=== PATIENT | female | born 1940 | race African-American/Black ===

== ENCOUNTER 2016-12-21 16:03 | Emergency (ER) | payer MEDICAID, MEDICARE ==
[~2016-12-21] VITALS: Ht 152.4 cm; Wt 73.0 kg
[~2016-12-21 16:03] MED LIST: ALEVE220 M2 PO; ASPIR 8181 MG ORAL; ATORVASTATIN CA20 MG ORAL; BISACODYL5 MG ORAL; CALCIUM 500 +1 EAC7 PO; CARVEDILOL6.25 MG ORAL; DOCUSATE SODIU250 MG ORAL; HYDROCODON-ACE1 EA13 ORAL; NITROGLYCERIN0.4 MG SL; RANITIDINE HCL150 MG ORAL; VICODIN 5-5001 EACH PO; WARFARIN SODIUM2 MG ORAL
[2016-12-21] MEDS ORDERED: Sodium Chloride 500ML 500 ML IV ONE (16:18)
[2016-12-21 16:21] VITALS: BP 104/47
[2016-12-21 16:30] VITALS: BP 110/52
[2016-12-21] MEDS ORDERED: Morphine Sulfate 4mg/ml Inj IVP ONE (16:45)
[2016-12-21 17:44] LABS: BASOPHILS % (AUTO) 1.9 % (0.0-2.0); EOSINOPHILS % (AUTO) 5.4 % (0.0-3.0); LYMPHOCYTES % (AUTO) 30.5 % (20.0-45.0); MEAN CORPUSCULAR HEMOGLOBIN 30.1 PG (27.0-31.0); MEAN CORPUSCULAR HGB CONC 30.1 G/DL (32.0-36.0); MEAN CORPUSCULAR VOLUME 100 FL (80-99); MEAN PLATELET VOLUME 7.2 FL (6.5-10.1); MONOCYTES % (AUTO) 13.6 % (1.0-10.0); NEUTROPHILS % (AUTO) 48.7 % (45.0-75.0); PLATELET COUNT 157 K/UL (150-450); RED BLOOD COUNT 3.41 M/UL (4.20-5.40); RED CELL DISTRIBUTION WIDTH 12.8 % (11.6-14.8)
[2016-12-21 18:09] LABS: ALANINE AMINOTRANSFERASE 22 U/L (12-78); ALBUMIN/GLOBULIN RATIO 0.8 (1.0-2.7); ANION GAP 4 (5-15); ASPARTATE AMINO TRANSFERASE 29 U/L (15-37); CALCIUM 9.2 MG/DL (8.5-10.1); CARBON DIOXIDE 32 MMOL/L (21-32); CHLORIDE 102 MMOL/L (98-107); CKMB 1.6 NG/ML (0.0-3.6); CREATININE 0.8 MG/DL (0.55-1.30); POTASSIUM 4.5 MMOL/L (3.5-5.1); SODIUM 138 MMOL/L (136-145); TOTAL PROTEIN 7.6 G/DL (6.4-8.2)
[2016-12-21 18:25] VITALS: BP 123/65
[2016-12-21 20:15] VITALS: BP 146/71
[2016-12-21 20:21] VITALS: BP 146/71
--- NOTE | 2016-12-21 22:07 | Emergency Room Report ---
History of Present Illness General Chief Complaint: Chest Pain Source: Patient Present Illness HPI 76-year-old female presents ED for evaluation. Patient states she is having chest pain started pressure 1 hour prior to arrival appear started at rest. Pain was initially 7/10, dull, nonradiating. Patient was given nitroglycerin by EMS and aspirin. states chest pain is improved. Denies fevers or chills. Denies cough. No aggravating relieving factors. Denies any other associated symptoms Allergies: Coded Allergies: NO KNOWN ALLERGIES (Unverified Allergy, Unknown, 03/01/15) Patient History Past Medical History: HTN, GERD, CVA/TIA Past Surgical History: pacemaker Pertinent Family History: none Social History: Denies: smoking, alcohol use, drug use Now: No Immunizations: UTD Reviewed Nursing Documentation: PMH: Agreed, PSxH: Agreed Nursing Documentation-PMH Hx Cardiac Problems: Yes - pacemaker, arthritis Hx Hypertension: Yes Hx Pacemaker: Yes Hx Cancer: No Hx Gastrointestinal Problems: Yes - GASTRITIS Hx Cerebrovascular Accident: Yes Review of Systems All Other Systems: negative except mentioned in HPI Physical Exam Vital Signs Date Time Temp Pulse Resp B/P (MAP) Pulse Ox O2 Delivery O2 Flow Rate FiO2 12/21/16 16:11 97.5 88 16 89/52 99 12/21/16 16:21 Room Air Sp02 EP Interpretation: reviewed, normal General Appearance: no apparent distress, alert, GCS 15, non-toxic Head: normocephalic, atraumatic Eyes: bilateral eye normal inspection, bilateral eye PERRL ENT: hearing grossly normal, normal pharynx, no angioedema, normal voice Neck: full range of motion, supple/symm/no masses Respiratory: chest non-tender, lungs clear, normal breath sounds, speaking full sentences Cardiovascular #1: regular rate, rhythm, no edema Cardiovascular #2: 2+ carotid (R), 2+ carotid (L), 2+ radial (R), 2+ radial (L) , 2+ dorsalis pedis (R), 2+ dorsalis pedis (L) Gastrointestinal: normal bowel sounds, non tender, soft, non-distended, no guarding, no rebound Rectal: deferred Genitourinary: normal inspection, no CVA tenderness Musculoskeletal: back normal, gait/station normal, normal range of motion, non- tender Neurologic: alert, oriented x3, responsive, motor strength/tone normal, sensory intact, speech normal Psychiatric: judgement/insight normal, memory normal, mood/affect normal, no suicidal/homicidal ideation Reflexes: 3+ bicep (R), 3+ bicep (L), 3+ tricep (R), 3+ tricep (L), 3+ knee (R) , 3+ knee (L) Skin: normal color, no rash, warm/dry, well hydrated Lymphatic: no adenopathy Medical Decision Making Diagnostic Impression: Primary Impression: ACS (acute coronary syndrome) ER Course Hospital Course 76-year-old female presents ED complaining of chest pain improved after nitroglycerin Differential diagnoses include: NC/unstable angina, contusion, muscle strain, PTX, rib fracture Clinical course Patient placed on 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 After initial history and physical I ordered labs, EKG, chest x-ray, morphine labs reviewed- no leukocytosis, hb/hct stable, electrolytes ok, troponin negative EKG - NSR, no acute ischemic changes interpreted by me Chest x-ray- interstitial congestion. pacemaker because of insurance patient will be transferred to [facility]. I feel this is a highly complex case requiring extensive working including EKG/Rhythm strip, Xray/CT/US, Blood/urine lab work, repeat exams while in ED, and administration of strong opiates/narcotics for pain control, admission to hospital or close patient follow up. Diagnosis - ACS transferred in serious condition Labs Test 12/21/16 17:15 White Blood Count 6.0 K/UL (4.8-10.8) Red Blood Count 3.41 M/UL (4.20-5.40) Hemoglobin 10.3 G/DL (12.0-16.0) Hematocrit 34.2 % (37.0-47.0) Mean Corpuscular Volume 100 FL (80-99) Mean Corpuscular Hemoglobin 30.1 PG (27.0-31.0) Mean Corpuscular Hemoglobin Concent 30.1 G/DL (32.0-36.0) Red Cell Distribution Width 12.8 % (11.6-14.8) Platelet Count 157 K/UL (150-450) Mean Platelet Volume 7.2 FL (6.5-10.1) Neutrophils (%) (Auto) 48.7 % (45.0-75.0) Lymphocytes (%) (Auto) 30.5 % (20.0-45.0) Monocytes (%) (Auto) 13.6 % (1.0-10.0) Eosinophils (%) (Auto) 5.4 % (0.0-3.0) Basophils (%) (Auto) 1.9 % (0.0-2.0) Sodium Level 138 MMOL/L (136-145) Potassium Level 4.5 MMOL/L (3.5-5.1) Chloride Level 102 MMOL/L (98-107) Carbon Dioxide Level 32 MMOL/L (21-32) Anion Gap 4 (5-15) Blood Urea Nitrogen 28 mg/dL (7-18) Creatinine 0.8 MG/DL (0.55-1.30) Estimat Glomerular Filtration Rate mL/min (>60) Glucose Level 115 MG/DL (74-106) Calcium Level 9.2 MG/DL (8.5-10.1) Total Bilirubin 0.4 MG/DL (0.2-1.0) Aspartate Amino Transf (AST/SGOT) 29 U/L (15-37) Alanine Aminotransferase (ALT/SGPT) 22 U/L (12-78) Alkaline Phosphatase 44 U/L (46-116) Total Creatine Kinase 190 U/L (26-308) Creatine Kinase MB 1.6 NG/ML (0.0-3.6) Creatine Kinase MB Relative Index 0.8 Troponin I 0.013 ng/mL (0.000-0.056) Pro-B-Type Natriuretic Peptide 169 (0-125) Total Protein 7.6 G/DL (6.4-8.2) Albumin 3.3 G/DL (3.4-5.0) Globulin 4.3 g/dL Albumin/Globulin Ratio 0.8 (1.0-2.7) EKG Diagnostic Results Rate: normal Rhythm: NSR ST Segments: no acute changes ASA given to the pt in ED: No - given by ems Rhythm Strip Diag. Results EP Interpretation: yes Rhythm: NSR, no PVC's, no ectopy Chest X-Ray Diagnostic Results Chest X-Ray Diagnostic Results : Chest X-Ray Ordered: Yes # of Views/Limited/Complete: 1 View Indication: Chest Pain EP Interpretation: Yes Interpretation: no consolidation, no effusion, no pneumothorax, no acute cardiopulmonary disease, other - pacemaker Impression: Other - interstitial congestion. pacemaker Electronically Signed by: Electronically signed by Harpal Corrigan MD Last Vital Signs Date Time Temp Pulse Resp B/P (MAP) Pulse Ox O2 Delivery O2 Flow Rate FiO2 12/21/16 20:21 74 19 146/71 100 Room Air 12/21/16 20:15 98.8 Status: improved Disposition: XFER SHT-TRM HOSP Condition: Serious Referrals: [facility] (PCP) HARPAL CORRIGAN M.D. Dec 21, 2016 22:07
--- NOTE | 2016-12-22 10:35 | Diagnostic Imaging Report ---
Indication: Chest pain Technique: One view of the chest Comparison: 03/01/2015 Findings: Inspiration is suboptimal. Interstitial changes in the bilateral suprahilar regions appears similar to the prior exam, may be chronic in nature. Right chest AICD, orphaned left chest AICD leads again noted. No significant interim change. Impression: Hypoventilatory exam. No definite acute process Bilateral perihilar/suprahilar interstitial markings. Similarity to prior study suggests chronic process Other findings as noted
--- NOTE | 2017-01-01 15:48 | Cardiology Report ---
APPROVED REPORT EKG Measurement Heart [id number] Normal sinus rhythm Dual-Chamber Pacemaker Abnormal ECG
== END 2016-12-21 20:21 | disposition short-term general hospital (02) ==
LOC: EDBD 16:03 → EDUNIT# 16:03 → EMR 16:41
DX: I24.9 Acute ischemic heart disease, unspecified (principal); I10 Essential (primary) hypertension; Z95.0 Presence of cardiac pacemaker; Z86.73 Personal history of transient ischemic attack (TIA), and cerebral infarction without residual deficits; Z87.19 Personal history of other diseases of the digestive system
CPT/HCPCS: 36415; 71010; 80053; 82550; 82553; 83880; 84484; 85025; 93005; 96361; 96374; 99285; J2270; J7040

== ENCOUNTER 2017-06-23 21:52 | Emergency (ER) | payer MEDICARE, MEDICAID ==
[~2017-06-23] VITALS: Ht 153 cm; Wt 73.0 kg
[~2017-06-23 21:52] MED LIST changes: +UNOBMED
[2017-06-23 22:35] VITALS: BP 109/55
[2017-06-23 22:42] LABS: HEMATOCRIT 37.5 % (37.0-47.0); HEMOGLOBIN 12.1 G/DL (12.0-16.0); MEAN CORPUSCULAR VOLUME 97 FL (80-99); PLATELET COUNT 137 K/UL (150-450); RED BLOOD COUNT 3.86 M/UL (4.20-5.40); RED CELL DISTRIBUTION WIDTH 12.6 % (11.6-14.8); WHITE BLOOD COUNT 3.1 K/UL (4.8-10.8)
[2017-06-23 22:59] LABS: ANION GAP 6 mmol/L (5-15); BLOOD UREA NITROGEN 26 mg/dL (7-18); CALCIUM 8.9 MG/DL (8.5-10.1); CARBON DIOXIDE 29 MMOL/L (21-32); CHLORIDE 105 MMOL/L (98-107); CREATININE 0.8 MG/DL (0.55-1.30); POTASSIUM 3.5 MMOL/L (3.5-5.1); SODIUM 140 MMOL/L (136-145)
--- NOTE | 2017-06-23 22:59 | Emergency Room Report ---
History of Present Illness General Chief Complaint: Chest Pain Source: Patient Present Illness HPI 76-year-old female with pmhx of HTN, pace maker p/w chest pain for 2 hours. Chest pain started while at rest. Localized to substernal area, no radiation to back or other areas, sharp in nature, gradual in onset, lasted no SOB. Denies palpitations, diaphoresis, n/v. Patient was given aspirin and nitroglycerin by EMS. Patient states she still has the chest pain despite meds Denies fever, chills, abd pain. Denies trauma. Unknown last cardiac cath or stress test Patient also noted to be coughing Allergies: Coded Allergies: NO KNOWN ALLERGIES (Unverified Allergy, Unknown, 03/01/15) Patient History Past Medical History: see triage record Past Surgical History: none Pertinent Family History: none Reviewed Nursing Documentation: PMH: Agreed; PSxH: Agreed Nursing Documentation-PMH Past Medical History: No History, Except For Hx Cardiac Problems: Yes - Pacemaker Hx Hypertension: Yes Hx Pacemaker: Yes Hx Asthma: Yes Hx Cancer: No Hx Gastrointestinal Problems: Yes - GASTRITIS Hx Cerebrovascular Accident: Yes Review of Systems All Other Systems: negative except mentioned in HPI Physical Exam Vital Signs Date Time Temp Pulse Resp B/P (MAP) Pulse Ox O2 Delivery O2 Flow Rate FiO2 06/23/17 21:35 97.9 82 16 100/52 98 Room Air 97.9 Sp02 EP Interpretation: reviewed, normal General Appearance: alert, GCS 15, non-toxic, mild distress Head: normocephalic, atraumatic Eyes: bilateral eye normal inspection, bilateral eye PERRL, bilateral eye EOMI ENT: normal ENT inspection, normal pharynx, normal voice, moist mucus membranes Neck: normal inspection, full range of motion, supple Respiratory: no respiratory distress, no accessory muscle use, speaking full sentences, other - dec b/s b/l Cardiovascular #1: normal inspection, regular rate, rhythm, no edema, normal capillary refill Cardiovascular #2: 2+ radial (R), 2+ radial (L) Gastrointestinal: normal inspection, non tender, soft, non-distended, no guarding Musculoskeletal: normal inspection, back normal, normal range of motion, non- tender Neurologic: normal inspection, alert, oriented x3, responsive, motor strength/ tone normal, sensory intact, speech normal Psychiatric: normal inspection, judgement/insight normal, memory normal Skin: normal inspection, normal color, no rash, warm/dry, well hydrated, normal turgor Medical Decision Making Diagnostic Impression: Primary Impression: ACS (acute coronary syndrome) ER Course 76-year-old female p/w CP DDX: ACS vs. CHF vs. pneumonia vs. gastritis/GERD vs. pneumothorax Plan: IV access, obtain labs including troponin, EKG, CXR Aspirin already given by EMS Anticipate admission ER course: Patient was treated with ASA by EMS Patient has remained on a monitor, HD stable, given morphine, chest pain improved. trop neg Disposition: Patient will be xferred to [facility] 04/16 to insurance purposes. stable for [facility] D/W hospitalist DR DILLARD who has accepted pt Please note that this Emergency Department Report was dictated using [employer] up clerk technology software, occasionally this can lead to erroneous entry secondary to interpretation by the dictation equipment. EKG Diagnostic Results EP Interpretation: Yes Rate: normal Rhythm: NSR ST Segments: Atrial paced no acute ST-T changes ASA given to patient: Yes Rhythm Strip EP Interpretation: Yes Rate: 70 Rhythm: NSR, no PVCs, no ectopy Chest X-ray CXR: Ordered: Yes 1 view Indication: Chest pain EP interpretation: Yes Interpretation: Some congestion, pacemaker noted Impression:Some congestion, pacemaker noted Electronically signed by Mahad Myles MD Laboratory Tests Test 06/23/17 22:10 White Blood Count 3.1 K/UL (4.8-10.8) L Red Blood Count 3.86 M/UL (4.20-5.40) L Hemoglobin 12.1 G/DL (12.0-16.0) Hematocrit 37.5 % (37.0-47.0) Mean Corpuscular Volume 97 FL (80-99) Mean Corpuscular Hemoglobin 31.3 PG (27.0-31.0) H Mean Corpuscular Hemoglobin Concent 32.2 G/DL (32.0-36.0) Red Cell Distribution Width 12.6 % (11.6-14.8) Platelet Count 137 K/UL (150-450) L Mean Platelet Volume 7.5 FL (6.5-10.1) Neutrophils (%) (Auto) % (45.0-75.0) Lymphocytes (%) (Auto) % (20.0-45.0) Monocytes (%) (Auto) % (1.0-10.0) Eosinophils (%) (Auto) % (0.0-3.0) Basophils (%) (Auto) % (0.0-2.0) Differential Total Cells Counted 100 Neutrophils % (Manual) 31 % (45-75) L Lymphocytes % (Manual) 51 % (20-45) H Monocytes % (Manual) 12 % (1-10) H Eosinophils % (Manual) 5 % (0-3) H Basophils % (Manual) 0 % (0-2) Band Neutrophils 1 % (0-8) Platelet Estimate Decreased L Platelet Morphology Normal Macrocytosis 1+ Prothrombin Time 10.4 SEC (9.30-11.50) Prothrombin Time INR 1.0 (0.9-1.1) PTT 28 SEC (23-33) Sodium Level 140 MMOL/L (136-145) Potassium Level 3.5 MMOL/L (3.5-5.1) Chloride Level 105 MMOL/L (98-107) Carbon Dioxide Level 29 MMOL/L (21-32) Anion Gap 6 mmol/L (5-15) Blood Urea Nitrogen 26 mg/dL (7-18) H Creatinine 0.8 MG/DL (0.55-1.30) Estimate Glomerular Filtration Rate mL/min (>60) Glucose Level 120 MG/DL (74-106) H Calcium Level 8.9 MG/DL (8.5-10.1) Total Bilirubin 0.3 MG/DL (0.2-1.0) Aspartate Amino Transferase (AST) 26 U/L (15-37) Alanine Aminotransferase (ALT) 20 U/L (12-78) Alkaline Phosphatase 51 U/L (46-116) Troponin I 0.014 ng/mL (0.000-0.056) Pro-B-Type Natriuretic Peptide 46 pg/mL (0-125) Total Protein 8.4 G/DL (6.4-8.2) H Albumin 3.6 G/DL (3.4-5.0) Globulin 4.8 g/dL Albumin/Globulin Ratio 0.8 (1.0-2.7) L Last Vital Signs Date Time Temp Pulse Resp B/P (MAP) Pulse Ox O2 Delivery O2 Flow Rate FiO2 06/23/17 22:35 97.9 67 18 109/55 98 Room Air 97.9 Disposition: ADMITTED INPATIENT Condition: Serious Mahad Myles M.D. Jun 23, 2017 22:59
[2017-06-23 23:11] LABS: ALANINE AMINOTRANSFERASE 20 U/L (12-78); ALBUMIN 3.6 G/DL (3.4-5.0); ALBUMIN/GLOBULIN RATIO 0.8 (1.0-2.7); ALKALINE PHOSPHATASE 51 U/L (46-116); ASPARTATE AMINO TRANSFERASE 26 U/L (15-37); BILIRUBIN,TOTAL 0.3 MG/DL (0.2-1.0)
[2017-06-23] MEDS ORDERED: Morphine Sulfate 2mg/ml Inj IVP ONE (23:30)
[2017-06-23 23:31] VITALS: BP 122/51
[2017-06-24 00:20] LABS: APPEARANCE,URINE CLEAR; BILIRUBIN, URINE 3+ (NEGATIVE); GLUCOSE, URINE (UA) NEGATIVE (NEGATIVE); KETONES,URINE NEGATIVE (NEGATIVE); LEUKOCYTE ESTERASE ,URINE NEGATIVE (NEGATIVE); PH,URINE 5 (4.5-8.0); UROBILINOGEN,URINE 8 MG/DL (0.0-1.0)
[2017-06-24 00:23] LABS: COLOR,URINE AMBER
[2017-06-24 00:24] LABS: NITRITE,URINE NEGATIVE (NEGATIVE); PROTEIN,URINE NEGATIVE (NEGATIVE)
[2017-06-24 01:43] VITALS: BP 117/51
[2017-06-24 02:16] VITALS: BP 117/51
--- NOTE | 2017-06-24 11:40 | Diagnostic Imaging Report ---
Indication: Chest pain Comparison: None A single view chest radiograph was obtained. Findings: No vascular congestion is present. The heart is enlarged. Pacemaker again noted. IMPRESSION: Mild CHF suspected
== END 2017-06-24 02:25 | disposition short-term general hospital (02) ==
LOC: EDBD 21:52 → EMR 23:23
DX: I24.9 Acute ischemic heart disease, unspecified (principal); I10 Essential (primary) hypertension; J45.909 Unspecified asthma, uncomplicated; Z95.0 Presence of cardiac pacemaker; Z87.19 Personal history of other diseases of the digestive system
CPT/HCPCS: 36415; 71045; 80053; 81003; 83880; 84484; 85007; 85025; 85610; 85730; 93005; 99285; J2270

== ENCOUNTER 2018-09-30 21:17 | Inpatient (IN) | payer MEDICARE, MEDICAID ==
[~2018-09-30] VITALS: Ht 154.9 cm; Wt 60.3 kg
--- NOTE | 2018-09-30 23:00 | NUR ---
NURSE NOTES: Received pt from ambulance personnel. Pt awake, alert, and talkative, VSS. Sacral discoloration noted, otherwise skin intact. Lung sounds clear, bowel sounds present. Edema noted in the right leg only. Legs are elevated. Bed in lowest position. Pacemaker noted on Right upper chest (placed 2013 per patient). Pt complaining of chest pain. Call light within reach. Will continue to monitor.
[2018-09-30 23:14] VITALS: BP 115/52
--- NOTE | 2018-09-30 23:42 | NUR ---
NURSE NOTES: Called and left a message with Dr. dallas and Dr. Lee requesting admission orders. Awaiting call back.
[2018-10-01] MEDS ORDERED: Albuterol/Ipratropium 3ml neb HHN PRN
[2018-10-01] MEDS ORDERED: dilTIAZem HCl 25mg/5ml Inj IV PRN
[2018-10-01] MEDS ORDERED: Miralax 17gm pkt ORAL PRN
[2018-10-01] MEDS ORDERED: Nitroglycerin Subl 0.4mg tab SL PRN
[2018-10-01] MEDS ORDERED: Enalaprilat 2.5mg/2ml Inj IV PRN
[2018-10-01] MEDS: HYDROcodone/Acetamin 10/325 tab ORAL SCH ×3 (00:50→12:29)
[2018-10-01] MEDS ORDERED: COREG3.125 MG ORAL (01:00)
[2018-10-01] MEDS ORDERED: PRADAXA110 MG PO (01:00)
[2018-10-01] MEDS ORDERED: FUROSEMIDE20 M1 ORAL (01:07)
[2018-10-01] MEDS ORDERED: NEURONTIN300 MG ORAL (01:07)
[2018-10-01] MEDS ORDERED: LACTULOSE10 GM/153 PO (01:07)
[2018-10-01] MEDS ORDERED: FOSAMAX70 MG ORAL (01:07)
[2018-10-01] MEDS ORDERED: PROTONIX20 MG ORAL (01:07)
[2018-10-01] MEDS ORDERED: LIPITOR80 MG ORAL (01:07)
[2018-10-01] MEDS ORDERED: MULTIVITAMINS1 EAC2 ORAL (01:09)
[2018-10-01] MEDS ORDERED: CALCIUM + D3 E1 EACH PO (01:09)
[2018-10-01 04:00] VITALS: BP 118/68
[2018-10-01] MEDS ORDERED: Enalaprilat 1.25mg/ml Inj IV PRN (06:15)
[2018-10-01 07:25] LABS: BASOPHILS % (AUTO) 1.5 % (0.0-2.0); EOSINOPHILS % (AUTO) 6.3 % (0.0-3.0); HEMATOCRIT 32.3 % (37.0-47.0); LYMPHOCYTES % (AUTO) 50.1 % (20.0-45.0); MEAN CORPUSCULAR VOLUME 102 FL (80-99); MONOCYTES % (AUTO) 10.1 % (1.0-10.0); NEUTROPHILS % (AUTO) 32.1 % (45.0-75.0); PLATELET COUNT 172 K/UL (150-450); RED BLOOD COUNT 3.17 M/UL (4.20-5.40); RED CELL DISTRIBUTION WIDTH 12.9 % (11.6-14.8); WHITE BLOOD COUNT 3.6 K/UL (4.8-10.8)
--- NOTE | 2018-10-01 07:55 | NUR ---
HAND-OFF: Report given to YUSEF Ventura. Pt stable..
[2018-10-01 08:00] VITALS: BP 102/48
--- NOTE | 2018-10-01 08:00 | NUR ---
NURSE NOTES: Pt awake/alert in bed breathing easily on room air, denies SOB and denies pain at this time. Vital signs stable with A-V pace @ 66 on monitor. IV access right a/c flushed with 10 ml NS and locked. Purewick in place draining pale/clear urine into canister on wall. Sacral optifoam in place, dry/intact, will remove later for picture and reapply. Bed left in low position, exit alarm set, side rails up x 3 and call light left near pt's hand.
[2018-10-01 08:04] LABS: CHOLESTEROL 153 MG/DL (< 200); HDL CHOLESTEROL 63 MG/DL (40-60); TRIGLYCERIDES 52 MG/DL (30-150)
[2018-10-01] MEDS: Carvedilol 6.25mg Tab ORAL SCH ×2 (09:46→21:15)
[2018-10-01] MEDS: Aspirin Baby 81mg ORAL SCH (09:46)
[2018-10-01] MEDS: Heparin 5000 units/ml inj SUBQ SCH ×2 (09:47→21:24)
[2018-10-01 12:00] VITALS: BP 110/53
[2018-10-01] MEDS ORDERED: HYDROcodone/Acetamin 10/325 tab ORAL PRN (13:45)
--- NOTE | 2018-10-01 13:50 | History & Physical ---
History and Physical History & Physicial Dictated for Int med-Dr Mosqueda no. [id number] Iglesia Palomares MD Oct 01, 2018 13:50
[2018-10-01] MEDS ORDERED: Morphine Sulfate 2mg/ml Inj(IV/IM USE ONLY) IVP PRN ×2 (14:00)
--- NOTE | 2018-10-01 14:15 | Cardiac Electrophysiology PN ---
Subjective Subjective [id number] Right SJ BIV ICD 01/2016 Abandoned RA and 2 RV leads on Left Objective Last 24 Hour Vital Signs Date Time Temp Pulse Resp B/P (MAP) Pulse Ox O2 Delivery O2 Flow Rate FiO2 10/01/18 09:46 66 118/68 10/01/18 04:00 98.1 74 18 118/68 (85) 96 10/01/18 04:00 66 10/01/18 00:30 Room Air 10/01/18 00:00 73 09/30/18 23:14 98.1 73 115/52 (73) 98 09/30/18 23:00 74 Intake and Output 09/30/18 10/01/18 19:00 07:00 Output Total 200 ml Balance -200 ml Output Urine Total 200 ml Laboratory Tests Test 10/01/18 05:38 White Blood Count 3.6 K/UL (4.8-10.8) L Red Blood Count 3.17 M/UL (4.20-5.40) L Hemoglobin 10.0 G/DL (12.0-16.0) L Hematocrit 32.3 % (37.0-47.0) L Mean Corpuscular Volume 102 FL (80-99) H Mean Corpuscular Hemoglobin 31.7 PG (27.0-31.0) H Mean Corpuscular Hemoglobin Concent 31.1 G/DL (32.0-36.0) L Red Cell Distribution Width 12.9 % (11.6-14.8) Platelet Count 172 K/UL (150-450) Mean Platelet Volume 6.6 FL (6.5-10.1) Neutrophils (%) (Auto) 32.1 % (45.0-75.0) L Lymphocytes (%) (Auto) 50.1 % (20.0-45.0) H Monocytes (%) (Auto) 10.1 % (1.0-10.0) H Eosinophils (%) (Auto) 6.3 % (0.0-3.0) H Basophils (%) (Auto) 1.5 % (0.0-2.0) Prothrombin Time 10.7 SEC (9.30-11.50) Prothromb Time International Ratio 1.0 (0.9-1.1) Activated Partial Thromboplast Time 29 SEC (23-33) Troponin I 0.026 ng/mL (0.000-0.056) C-Reactive Protein, Quantitative < 0.4 mg/dL (0.00-0.90) Triglycerides Level 52 MG/DL (30-150) Cholesterol Level 153 MG/DL (< 200) LDL Cholesterol 76 mg/dL (<100) HDL Cholesterol 63 MG/DL (40-60) H Cholesterol/HDL Ratio 2.4 (3.3-4.4) L Thyroid Stimulating Hormone (TSH) 5.037 uiU/mL (0.358-3.740) Tutu Benson MD Oct 01, 2018 14:15
--- NOTE | 2018-10-01 14:42 | Consultation ---
History of Present Illness General Date patient seen: Oct 01, 2018 Time patient seen: 12:15 Chief Complaint: chest pain, SOB Referring physician: dr Mosqueda Reason for Consultation: shortness of breath Present Illness HPI 78 years old female with PMH of CAD, NC, systolic CHF, PAF ( on Pradaxa), AICD , history of CVA , GERD, osteoporosis, hyperlipidemia, history of PE, PVD, GERD , OP, initially presented to [facility] for evaluation due to chest pain. Troponin was negative. EKG revealed no acute ischemic changes . Patient lost her [employer] insurance at the end of August , and subsequently for insurance reason was transferred to [facility] for further management. Upon evaluation patient denied chest pain , but admits to intermittent shortness of breath. She denied cough, hemoptysis, wheezing, congestion. She denied fever or chills. Telemetry showed AV pacing. Laboratory work-up revealed mild leukopenia with WBC 3.6, anemia with hemoglobin 10, hematocrit 32.3 , platelet count 172 Troponin negative. Lipid panel stable. TSH elevated 5.037 . Allergies: Coded Allergies: NSAIDS (NON-STEROIDAL ANTI-INFLAMMA (Unverified Allergy, Severe, 10/01/18) EXCEPTION TO NSAID INTOLERANCE IS ASPIRIN 81-325MG DAILY AND TOPICAL OR OPHTHALMIC NSAIDS Uncoded Allergies: NSAIDS (Allergy, Severe, 10/01/18) Medication History Scheduled Alendronate Sodium* (Fosamax*), 70 MG ORAL ONCE A WEEK, (Reported) Atorvastatin Calcium* (Atorvastatin Calcium*), 40 MG ORAL BEDTIME, (Reported) Calcium Carb & Cit/Vitamin D3 (Calcium + D3 Er Tablet), 1 EACH PO BID, (Reported ) Carvedilol (Coreg), 3.125 MG ORAL EVERY 12 HOURS, (Reported) Dabigatran Etexilate Mesylate (Pradaxa), 150 MG PO BID, (Reported) Gabapentin* (Gabapentin*), 100 MG ORAL TWICE A DAY, (Reported) Multivitamins* (Multivitamins*), 1 TAB ORAL DAILY, (Reported) Pantoprazole* (Pantoprazole*), 40 MG ORAL EVERY 12 HOURS, (Reported) Scheduled PRN Furosemide* (Lasix*), 20 MG ORAL EVERY 72 HOURS PRN for LEG SWELLING, (Reported) Lactulose (Lactulose), 10-20 GM PO TID PRN for Constipation, (Reported) Nitroglycerin (Nitroglycerin), 0.4 MG SL PRN PRN for CHEST PAIN, (Reported) Discontinued Medications Aspirin* (Aspir 81*), 81 MG ORAL DAILY, (Reported) Discontinued Reason: Therapy completed Bisacodyl* (Dulcolax*), 5 MG ORAL DAILY, (Reported) Discontinued Reason: Therapy completed Docusate Sodium* (Docusate Sodium*), 250 MG ORAL TWICE A DAY, (Reported) Discontinued Reason: Therapy completed Hydrocodone Bit/Acetaminophen 10-325* (Hydrocodon-Acetaminophn 10-325*), 1 TAB ORAL Q6H, (Reported) Discontinued Reason: Therapy completed Ranitidine Hcl* (Zantac*), 150 MG ORAL TWICE A DAY Discontinued Reason: Therapy completed Warfarin Sod* (Warfarin Sod*), 2 MG ORAL DAILY, (Reported) Discontinued Reason: Therapy completed Patient History Healthcare decision maker son Resuscitation status Full Code Advanced Directive on File Past Medical/Surgical History Past Medical/Surgical History: (1) Osteoporosis (2) GERD (gastroesophageal reflux disease) (3) Hyperlipidemia (4) PVD (peripheral vascular disease) (5) Hx pulmonary embolism (6) Myocardial infarct, old (7) Systolic CHF (8) CHF (congestive heart failure) (9) PAF (paroxysmal atrial fibrillation) Review of Systems Constitutional: Reports: weakness Eye: Reports: no symptoms ENT: Reports: no symptoms Respiratory: Reports: see HPI Cardiovascular: Reports: see HPI Gastrointestinal: Reports: constipation Genitourinary: Reports: frequency Musculoskeletal: Reports: joint pain Skin: Reports: dryness Psychiatric: Reports: no symptoms Neurological: Reports: no symptoms Endocrine: Reports: no symptoms Hematologic/Lymphatic: Reports: anemia Physical Exam General Appearance: other - frail elderly female awake, alert, responsive in NAD Lines, tubes and drains: peripheral HEENT: normocephalic, atraumatic, anicteric, mucous membranes moist Neck: non-tender, supple Respiratory/Chest: lungs clear - with moderate air exchnage , no respiratory distress, no accessory muscle use Cardiovascular/Chest: normal peripheral pulses, normal rate - AV pacing Abdomen: normal bowel sounds, non tender, soft Extremities: no calf tenderness, trace edema - BLE Skin Exam: warm/dry Neurologic: alert, responsive, other - left side weakness Musculoskeletal: atrophy - BLE Last 24 Hour Vital Signs Date Time Temp Pulse Resp B/P (MAP) Pulse Ox O2 Delivery O2 Flow Rate FiO2 10/01/18 12:00 65 10/01/18 12:00 98.1 65 17 110/53 (72) 98 10/01/18 09:46 66 118/68 10/01/18 08:00 97.6 61 16 102/48 (66) 98 10/01/18 08:00 61 10/01/18 04:00 98.1 74 18 118/68 (85) 96 10/01/18 04:00 66 10/01/18 00:30 Room Air 10/01/18 00:00 73 09/30/18 23:14 98.1 73 115/52 (73) 98 09/30/18 23:00 74 Intake and Output 09/30/18 10/01/18 19:00 07:00 Output Total 200 ml Balance -200 ml Output Urine Total 200 ml Laboratory Tests Test 10/01/18 05:38 White Blood Count 3.6 K/UL (4.8-10.8) L Red Blood Count 3.17 M/UL (4.20-5.40) L Hemoglobin 10.0 G/DL (12.0-16.0) L Hematocrit 32.3 % (37.0-47.0) L Mean Corpuscular Volume 102 FL (80-99) H Mean Corpuscular Hemoglobin 31.7 PG (27.0-31.0) H Mean Corpuscular Hemoglobin Concent 31.1 G/DL (32.0-36.0) L Red Cell Distribution Width 12.9 % (11.6-14.8) Platelet Count 172 K/UL (150-450) Mean Platelet Volume 6.6 FL (6.5-10.1) Neutrophils (%) (Auto) 32.1 % (45.0-75.0) L Lymphocytes (%) (Auto) 50.1 % (20.0-45.0) H Monocytes (%) (Auto) 10.1 % (1.0-10.0) H Eosinophils (%) (Auto) 6.3 % (0.0-3.0) H Basophils (%) (Auto) 1.5 % (0.0-2.0) Prothrombin Time 10.7 SEC (9.30-11.50) Prothromb Time International Ratio 1.0 (0.9-1.1) Activated Partial Thromboplast Time 29 SEC (23-33) Troponin I 0.026 ng/mL (0.000-0.056) C-Reactive Protein, Quantitative < 0.4 mg/dL (0.00-0.90) Triglycerides Level 52 MG/DL (30-150) Cholesterol Level 153 MG/DL (< 200) LDL Cholesterol 76 mg/dL (<100) HDL Cholesterol 63 MG/DL (40-60) H Cholesterol/HDL Ratio 2.4 (3.3-4.4) L Thyroid Stimulating Hormone (TSH) 5.037 uiU/mL (0.358-3.740) Height (Feet): 5 Height (Inches): 1.00 Weight (Pounds): 133 Medications Current Medications Medications (Trade) Dose Ordered Sig/Imelda Route PRN Reason Start Time Stop Time Status Last Admin Dose Admin Acetaminophen (Tylenol) 650 mg Q4H PRN ORAL FEVER 10/01/18 00:00 10/31/18 00:00 Acetaminophen/ Hydrocodone Bitart ([place] 10/325) 1 tab Q4H PRN ORAL Pain Scale (6-10) 10/01/18 13:45 10/08/18 13:44 Albuterol/ Ipratropium (Albuterol/ Ipratropium) 3 ml Q4H PRN HHN Shortness of Breath 10/01/18 00:00 10/06/18 00:00 Aspirin (ASA) 162 mg DAILY ORAL 10/01/18 09:00 10/31/18 08:59 10/01/18 09:46 Carvedilol (Coreg) 6.25 mg EVERY 12 HOURS ORAL 10/01/18 09:00 10/31/18 08:59 10/01/18 09:46 Diltiazem HCl (Cardizem) 10 mg Q1H PRN IV heart rate more than 120, 10/01/18 00:00 10/31/18 00:00 Enalaprilat (Vasotec) 2.5 mg Q6H PRN IV sbp more than 160 10/01/18 06:15 10/31/18 00:00 Heparin Sodium (Porcine) (Heparin 5000 units/ml) 5,000 units EVERY 12 HOURS SUBQ 10/01/18 09:00 10/31/18 08:59 10/01/18 09:47 Morphine Sulfate (Morphine Sulfate) 2 mg Q4H PRN IVP Breakthrough pain 10/01/18 14:00 10/08/18 00:00 Nitroglycerin (Ntg) 0.4 mg Q5M PRN SL Prn Chest Pain 10/01/18 00:00 10/31/18 00:00 Ondansetron HCl (Zofran) 4 mg Q6H PRN IVP Nausea & Vomiting 10/01/18 00:00 10/31/18 00:00 Polyethylene Glycol (Miralax) 17 gm DAILYPRN PRN ORAL Constipation 10/01/18 00:00 10/31/18 00:00 Temazepam (Restoril) 15 mg HSPRN PRN ORAL Insomnia 10/01/18 00:00 10/08/18 00:00 Assessment/Plan Assessment/Plan: ASSESSMENT Chest pain , rule out ACS CHF, systolic dysfunction Paroxysmal atrial fibrillation CAD with history of NC Hyperlipidemia History of PE PVD Status post AICD Hx of CVA Anemia Elevated TSH PLAN OF CARE tele Serial troponin, EKG Echo cardio follows a/PLT therapy with ASA BB O2 titrate to keep pulse ox above 92% HHN prn DVT prophylaxis venous duplex pain management monitor H&H with goal to keep Hgbn above 7 bowel regimen check free T3 and T4 supportive care case discussed and evaluated by supervising physician Chantelle Agee NP Oct 01, 2018 14:42
--- NOTE | 2018-10-01 15:30 | History and Physical Report ---
DATE OF ADMISSION: 09/30/2018 CHIEF COMPLAINT: The patient is a 78-year-old female, who presents with chief complaint of generalized weakness, dizziness, and chest pain. HISTORY OF PRESENT ILLNESS: Began on September 30, 2018. The patient initially presented to [facility] emergency room. The patient was complaining of generalized weakness and vertigo. The patient states the room was not spinning; however, she felt unsteady on her feet. The patient also was complaining of left-sided chest pain. The patient was transferred to [facility] secondary to insurance purposes. The patient was admitted with chest pain, generalized weakness, and vertigo to rule out acute coronary syndrome. REVIEW OF SYSTEMS: CONSTITUTIONAL: The patient denies weight loss or weight gain. The patient denies fevers or chills. HEENT: The patient denies ear or throat pain. The patient denies headache. CARDIOVASCULAR: The patient complains of chest pain as above. The patient denies palpitations. ABDOMEN: The patient denies nausea, vomiting, diarrhea, or constipation. GENITOURINARY: The patient denies dysuria or increased frequency of urination. NEUROMUSCULAR: The patient complains of generalized weakness. The patient complains of vertigo as above. The patient denies seizures. PAST MEDICAL HISTORY: Significant for: 1. Coronary artery disease, status post myocardial infarction in January 1976. 2. Gastroesophageal reflux disease. 3. Systolic congestive heart failure. 4. Osteoporosis. 5. History of pulmonary embolism. 6. Atrial fibrillation. 7. Hypercholesterolemia. 8. History of cerebrovascular accident. 9. Left hemiplegia. 10. Peripheral vascular disease. 11. Asthma. PAST SURGICAL HISTORY: Significant for: 1. Appendectomy. 2. Automatic implantable cardioverter defibrillator x4. 3. Total abdominal hysterectomy. 4. Open reduction and internal fixation of left femur fracture in 2012. CURRENT MEDICATIONS: 1. Fosamax 70 mg p.o. once weekly. 2. Aspirin 81 mg daily. 3. Atorvastatin 40 mg p.o. at bedtime. 4. Calcium with vitamin D one tablet p.o. twice daily. 5. Coreg 3.125 mg p.o. twice daily. 6. Pradaxa 150 mg p.o. twice daily. 7. Lasix 20 mg p.o. every other day. 8. Neurontin 100 mg p.o. twice daily. 9. Capron 10/325 mg one tablet p.o. q.4 h. p.r.n. 10. Lactulose 10 g p.o. daily p.r.n. 11. Nitroglycerin 0.4 mg sublingual p.r.n. 12. Protonix 40 mg p.o. daily. 13. Zantac 150 mg p.o. twice daily. 14. Coumadin 2 mg p.o. daily. ALLERGIES: The patient states she has no known drug allergies, however, prior medical history reports allergies to NSAIDs. SOCIAL HISTORY: The patient is a and lives alone. The patient denies tobacco or alcohol use. PHYSICAL EXAMINATION: VITAL SIGNS: Temperature 98.1, respirations 18, pulse of 80, blood pressure 115/52. GENERAL: The patient is a well-developed and well-nourished thin appearing, female, in no apparent distress. HEENT: Eyes, pupils equal and responsive to light and accommodation. Extraocular movements are intact. NECK: Supple without lymphadenopathy. CHEST: Lungs are clear to auscultation bilaterally without wheezes or rales. CARDIOVASCULAR: rhythm rate. S1, S2 are normal without murmurs, rubs, or gallops. ABDOMEN: Soft, nontender, nondistended. Positive bowel sounds. No evidence of hepatosplenomegaly. Currently, no rebound or guarding noted. EXTREMITIES: Negative for clubbing, cyanosis, or edema. RECTAL/GENITAL: Refused. NEUROLOGIC: Cranial nerves II through XII are grossly intact without focal deficits. Motor strength is 3/5 on the left and 5/5 on the right. Deep tendon reflexes are 2+ plantar. DIAGNOSTIC AND LABORATORY DATA: An EKG demonstrated atrial paced rhythm with premature atrial complexes at approximately 65 beats per minute. Otherwise, without acute ST changes or Q-waves noted. Laboratory studies, WBC 3.6, hemoglobin 10.0, hematocrit 32.3, platelets 172,000. Sodium 142, potassium 4.4, chloride 104, CO2 30, BUN 21, creatinine 0.56, glucose 99. Troponin less than 0.02. ASSESSMENT: This is a 78-year-old female. 1. Chest pain. 2. Generalized weakness. 3. Vertigo. 4. History of coronary artery disease. 5. Systolic congestive heart failure. 6. Gastroesophageal reflux disease. 7. Osteoporosis. 8. Pulmonary embolism. 9. Atrial fibrillation. 10. Hypercholesterolemia. 11. History of cerebrovascular disease. 12. Peripheral vascular disease. 13. Left hemiplegia. 14. AICD in situ. 15. Asthma. TREATMENT: 1. Chest pain/coronary artery disease/congestive heart failure/AICD in situ. A Cardiology consultation has been obtained with Dr. Tutu Benson. We will follow recommendations of Cardiology. Serial troponin levels will be performed. 2. Gastroesophageal reflux disease. Continue Protonix as above. 3. History of pulmonary embolism. Continue Pradaxa as above. 4. Atrial fibrillation. As above, a Cardiology consultation has been obtained with Dr. Tutu Benson. Continue Pradaxa as above. 5. Hypercholesterolemia. Continue atorvastatin as above. 6. Cerebrovascular disease. Continue aspirin as above. 7. Peripheral vascular disease. 8. Left hemiplegia. 9. AICD in situ. A pacemaker check has been scheduled with Dr. Tutu Benson. 10. Asthma. A Pulmonary consultation has been obtained with Dr. Amina Lee. Iglesia Palomares M.D. DR: REBECA JOB#: [id number] CC:
[2018-10-01 16:00] VITALS: BP 108/51
[2018-10-01] MEDS ORDERED: GABAPENTIN100 MG ORAL (18:59)
[2018-10-01] MEDS ORDERED: PANTOPRAZOLE SO40 MG ORAL (19:00)
--- NOTE | 2018-10-01 19:30 | NUR ---
NURSE NOTES: Received patient from Lorenzo RN. Patient in bed, awake, alert and oriented x4. On room air, no s/s respiratory distress. Bed in low position, locked, bed alarm on, call light within reach.
[2018-10-01 20:00] VITALS: BP 114/57
--- NOTE | 2018-10-01 21:00 | Consultation ---
DATE OF CONSULTATION: 10/01/2018 CARDIOLOGY CONSULTATION REASON FOR CONSULTATION: Evaluation of the patient's defibrillator and congestive heart failure. HISTORY OF PRESENT ILLNESS: The patient is a 78-year-old -[place]ir[place] lady, who was brought in from home by paramedics to the [facility] complaining of feeling more weak than usual with worsening of the chronic lower right and left leg edema and pain. The patient has history of pacemaker on the left side and then apparently was changed to the right side with the defibrillator at the [facility]. She stated that she had it done in 2012. The patient was then transferred to [facility] as the patient was not a [facility] member. Cardiology consultation was requested for further evaluation and management. REVIEW OF SYSTEMS: Review of systems was negative other than what was mentioned in the history of present illness. PAST MEDICAL HISTORY: Include: 1. Hypertension. 2. Congestive heart failure. 3. History of pacemaker on her left. 4. Status post defibrillator on the right. FAMILY HISTORY: Noncontributory. SOCIAL HISTORY: She does not smoke or drink alcohol. PHYSICAL EXAMINATION: VITAL SIGNS: Show blood pressure of 110/53, pulse 65, respirations 18, and temperature 98.1. HEAD AND NECK: Showed no JVD. LUNGS: Clear. CARDIOVASCULAR: Shows regular S1 and S2 with no gallop or murmur. ABDOMEN: Soft and nontender. EXTREMITIES: No pitting edema. There is a defibrillator in the right subclavian. There is a scar of the pacemaker in the left subclavian. LABORATORY DATA: Labs show white count of 3.6, hemoglobin of 10, hematocrit of 32, and platelet count is 172,000. Troponin is negative. . Her laboratories from [facility] was noted. It showed white count of 3.7, hemoglobin of 10.9, and hematocrit of 32, sodium 142, and potassium is 4.4. ASSESSMENT AND PLAN: 1. Status post [employer] biventricular defibrillator. The defibrillator was implanted in 2015. The leads were implanted in December 2006. We will try to re-interrogate the device for further evaluation and management. 2. Hypertension. Continue Coreg 6.25 mg b.i.d. 3. Congestive heart failure. Echocardiogram was repeated. The patient is on Coreg 6.25 mg b.i.d. At this time, we may need to add NABILA inhibitor and Aldactone to her medical regimen echocardiogram. The patient already has biventricular lead placed through the device. 4. Generalized weakness, likely due to the patient's cardiomyopathy. Echocardiogram will be repeated. 5. History of paroxysmal atrial fibrillation in March 2015. We interrogated the device to see the history of an arrhythmia. 6. History of pulmonary embolus in 2013. 7. History of CVA. 8. Peripheral vascular disease. 9. Asthma. Thank you very much, Dr. Lucero and Dr. Mosqueda, for allowing me to participate in the care of this patient. Please do not hesitate to contact me for any questions regarding my evaluation. Tutu Benson M.D. DR: TERI JOB#: [id number] CC:
[2018-10-02] VITALS: BP 111/57
[2018-10-02 04:00] VITALS: BP 120/55
[2018-10-02 07:19] LABS: BASOPHILS % (AUTO) 0.9 % (0.0-2.0); EOSINOPHILS % (AUTO) 5.8 % (0.0-3.0); HEMATOCRIT 31.7 % (37.0-47.0); HEMOGLOBIN 10.3 G/DL (12.0-16.0); LYMPHOCYTES % (AUTO) 40.1 % (20.0-45.0); MEAN CORPUSCULAR VOLUME 98 FL (80-99); MONOCYTES % (AUTO) 8.7 % (1.0-10.0); NEUTROPHILS % (AUTO) 44.5 % (45.0-75.0); PLATELET COUNT 134 K/UL (150-450); RED BLOOD COUNT 3.22 M/UL (4.20-5.40); RED CELL DISTRIBUTION WIDTH 12.4 % (11.6-14.8); WHITE BLOOD COUNT 3.7 K/UL (4.8-10.8)
--- NOTE | 2018-10-02 07:38 | NUR ---
HAND-OFF: Report given to Lorenzo HOLBROOK. Plan of care endorsed.
[2018-10-02 07:53] LABS: ANION GAP 4 mmol/L (5-15); BLOOD UREA NITROGEN 20 mg/dL (7-18); CALCIUM 8.9 MG/DL (8.5-10.1); CARBON DIOXIDE 31 MMOL/L (21-32); CHLORIDE 106 MMOL/L (98-107); CREATININE 0.6 MG/DL (0.55-1.30); POTASSIUM 3.9 MMOL/L (3.5-5.1); SODIUM 141 MMOL/L (136-145)
[2018-10-02 08:00] VITALS: BP 141/76
--- NOTE | 2018-10-02 08:25 | Pulmonology Progress Note ---
Assessment/Plan Assessment/Plan ASSESSMENT Chest pain , CHF, hx of systolic dysfunction Paroxysmal atrial fibrillation CAD with history of IN Hyperlipidemia History of PE Asthma PVD Hx of CVA Status post AICD Anemia Elevated TSH PLAN OF CARE tele Serial troponin negative, EKG pacing,nondiagnostic, no complaints of chest pain, Echo with pEF 55% and RVSP 39 c/w ild pulmonary hypertension cardio follows interrogation of AICD pending a/PLT therapy with ASA BB further medical management of CHF as per cardio recs O2 titrate to keep pulse ox above 92% HHN prn no evidence of asthma exacerbation or resp distress DVT prophylaxis venous duplex pain management monitor H&H with goal to keep Hgbn above 7 bowel regimen free T3 and T4 WNL, repeat TSH in 2-3 months supportive care case discussed and evaluated by supervising physician Subjective Allergies: Coded Allergies: NSAIDS (NON-STEROIDAL ANTI-INFLAMMA (Unverified Allergy, Severe, 10/01/18) EXCEPTION TO NSAID INTOLERANCE IS ASPIRIN 81-325MG DAILY AND TOPICAL OR OPHTHALMIC NSAIDS Uncoded Allergies: NSAIDS (Allergy, Severe, 10/01/18) Subjective denies chest pain, SOB wants to go home stating "my son is coming and i will leave " Objective Last 24 Hour Vital Signs Date Time Temp Pulse Resp B/P (MAP) Pulse Ox O2 Delivery O2 Flow Rate FiO2 10/02/18 07:12 60 16 97 Room Air 21 10/02/18 04:00 97.6 67 20 120/55 (76) 95 10/02/18 03:33 62 10/02/18 00:04 61 10/02/18 00:00 98.1 60 18 111/57 (75) 97 10/01/18 21:15 62 114/57 10/01/18 21:00 Room Air 10/01/18 20:00 98.4 62 18 114/57 (76) 96 10/01/18 19:50 62 18 97 Room Air 21 10/01/18 19:32 60 10/01/18 16:00 97.8 70 17 108/51 (70) 97 10/01/18 16:00 70 10/01/18 12:00 65 10/01/18 12:00 98.1 65 17 110/53 (72) 98 10/01/18 09:46 66 118/68 10/01/18 09:00 Room Air Intake and Output 10/01/18 10/02/18 18:59 06:59 Intake Total 600 ml Output Total 800 ml Balance 600 ml -800 ml Intake Oral 600 ml Output Urine Total 800 ml # Voids 5 Objective General Appearance: frail elderly female awake, alert, responsive in NAD, somewhat anxious Lines, tubes and drains: peripheral HEENT: normocephalic, atraumatic, anicteric, mucous membranes moist Neck: non-tender, supple Respiratory/Chest: lungs clear - with moderate air exchange , no respiratory distress, no accessory muscle use Cardiovascular/Chest: normal peripheral pulses, normal rate - AV pacing, R sided AICD Abdomen: normal bowel sounds, non tender, soft Neurologic: alert, responsive, L side weakness Musculoskeletal: atrophy - BLE Laboratory Tests 10/02/18 05:55: White Blood Count 3.7L, Red Blood Count 3.22L, Hemoglobin 10.3L, Hematocrit 31.7L, Mean Corpuscular Volume 98, Mean Corpuscular Hemoglobin 32.0H, Mean Corpuscular Hemoglobin Concent 32.5, Red Cell Distribution Width 12.4, Platelet Count 134L, Mean Platelet Volume 5.9L, Neutrophils (%) (Auto) 44.5L, Lymphocytes (%) (Auto) 40.1, Monocytes (%) (Auto) 8.7, Eosinophils (%) (Auto) 5.8H, Basophils (%) (Auto) 0.9, Sodium Level 141, Potassium Level 3.9, Chloride Level 106, Carbon Dioxide Level 31, Anion Gap 4L, Blood Urea Nitrogen 20H, Creatinine 0.6, Estimat Glomerular Filtration Rate , Glucose Level 89, Calcium Level 8.9, Troponin I 0.003, Pro-B-Type Natriuretic Peptide 329H, Free Thyroxine 1.04, Free Triiodothyronine 2.4 Current Medications Medications (Trade) Dose Ordered Sig/Imelda Route PRN Reason Start Time Stop Time Status Last Admin Dose Admin Acetaminophen (Tylenol) 650 mg Q4H PRN ORAL FEVER 10/01/18 00:00 10/31/18 00:00 Acetaminophen/ Hydrocodone Bitart ([place] 10/325) 1 tab Q4H PRN ORAL Pain Scale (6-10) 10/01/18 13:45 10/08/18 13:44 10/01/18 21:16 Albuterol/ Ipratropium (Albuterol/ Ipratropium) 3 ml Q4H PRN HHN Shortness of Breath 10/01/18 00:00 10/06/18 00:00 Aspirin (ASA) 162 mg DAILY ORAL 10/01/18 09:00 10/31/18 08:59 10/01/18 09:46 Carvedilol (Coreg) 6.25 mg EVERY 12 HOURS ORAL 10/01/18 09:00 10/31/18 08:59 10/01/18 21:15 Diltiazem HCl (Cardizem) 10 mg Q1H PRN IV heart rate more than 120, 10/01/18 00:00 10/31/18 00:00 Enalaprilat (Vasotec) 2.5 mg Q6H PRN IV sbp more than 160 10/01/18 06:15 10/31/18 00:00 Heparin Sodium (Porcine) (Heparin 5000 units/ml) 5,000 units EVERY 12 HOURS SUBQ 10/01/18 09:00 10/31/18 08:59 10/01/18 21:24 Morphine Sulfate (Morphine Sulfate) 2 mg Q4H PRN IVP Breakthrough pain 10/01/18 14:00 10/08/18 00:00 Nitroglycerin (Ntg) 0.4 mg Q5M PRN SL Prn Chest Pain 10/01/18 00:00 10/31/18 00:00 Ondansetron HCl (Zofran) 4 mg Q6H PRN IVP Nausea & Vomiting 10/01/18 00:00 10/31/18 00:00 10/01/18 18:23 Polyethylene Glycol (Miralax) 17 gm DAILYPRN PRN ORAL Constipation 10/01/18 00:00 10/31/18 00:00 Temazepam (Restoril) 15 mg HSPRN PRN ORAL Insomnia 10/01/18 00:00 10/08/18 00:00 Chantelle Agee NURSE ASSESSOR Oct 02, 2018 08:25
[2018-10-02 09:00] VITALS: BP 120/55
[2018-10-02] MEDS: Carvedilol 6.25mg Tab ORAL SCH ×2 (09:00→09:25)
[2018-10-02] MEDS: Aspirin Baby 81mg ORAL SCH ×2 (09:00→09:24)
[2018-10-02] MEDS: Heparin 5000 units/ml inj SUBQ SCH (09:00)
--- NOTE | 2018-10-02 11:00 | NUR ---
NURSE NOTES: Pt became angry about being at [facility] and said she was going to go home. Staff unable to dissuade pt form leaving. Called son and he could not get pt to stay. Pt got dressed, removed her IV access and took off monitor. Pt alert and oriented x 4. Pt escorted down stairs in order to ensure safety. Son called again, unable to pick her up at this time. Taxi called to take pt home. Taxi co said they know the pt well. Prior to taxi arriving, the pt told us to get back inside and "leave me the fk alone." Dr Benson and Dr Palomares informed of pt AMA.
--- NOTE | 2018-10-03 19:17 | Discharge Summary ---
Discharge Summary Discharge Summary _ DATE OF ADMISSION: 09/30/2018 DATE OF DISCHARGE: 10/02/2018 Patient left AGAINST MEDICAL ADVICE REASON FOR ADMISSION: 78 years old female with past medical history of coronary artery disease, myocardial infarction in 1975, systolic congestive heart failure, paroxysmal atrial fibrillation, on Pradaxa, AICD, hyperlipidemia, history of CVA with left sided weakness, GERD, osteoporosis, hyperlipidemia, history of PE, DVT, GERD, osteoporosis, initially presented to [facility] for evaluation due to chest pain. Troponin was negative. EKG revealed paced rhythm, no acute ischemic changes. Patient lost [employer] insurance at the end of August, and subsequently for insurance reasons she was transferred to [facility] for further management. Upon evaluation patient denied chest pain, but admits to intermittent shortness of breath. She denied cough, hemoptysis, wheezing, congestion. She denied fever or chills. Telemetry showed AV pacing. Laboratory work-up revealed mild leukopenia with WBC 3.6, anemia, with hemoglobin 10, hematocrit 22.3, platelet count 172. Lipid panel stable. TSH elevated 5.037. CONSULTANTS: java programmer Dr. Ponce pulmonary Dr. Lee [facility] COU[facility]SE: Patient admitted to telemetry floor. Serial troponin were negative. EKG revealed AV pacing. Telemetry continued to show AV pacing. No further complaint of chest pain. Echo revealed ejection fraction of 55% with abnormal inter-atrial septal movement. Mild left ventricular hypertrophy. No evidence of pericardial effusion. Right ventricular systolic pressure of 39 consistent with mild pulmonary hypertension. Physician Obstetrician and failure analysis technician followed. Antiplatelet therapy with aspirin and beta blockage continued. Interrogation of AICD was pending. Lipid panel was stable. Supplemental oxygen provided as needed to keep pulse oximetry above 92%. Handheld nebulizing therapy with bronchodilator was on board as needed. Pulse oximetry was stable on room air. No evidence of asthma exacerbation or respiratory distress. DVT prophylaxis provided. Venous duplex bilateral lower extremity was ordered, but patient declined. Pain management was addressed. Hemoglobin and hematocrit were closely monitored with goal to keep hemoglobin above 7. Bowel regimen instituted. Free T3 and T4 were within normal range. Repeat thyroid function test in 2 to 3 months. Supportive care provided Patient decided to leave AGAINST MEDICAL ADVICE. Patient awake alert oriented. The risks and consequences of signing AGAINST MEDICAL ADVICE were discussed with patient in detail. Patient verbalized understanding, nevertheless signed AMA form and left. Patient was encouraged to follow-up with her primary care provider. Recommended stress test as outpatient. Strict return to ED precautions were discussed with patient prior to her leaving. FINAL DIAGNOSES: Congestive heart failure with systolic dysfunction Status post [employer] biventricular defibrillator Chest pain Hypertension Hyperlipidemia History of paroxysmal atrial fibrillation in March 2015 History of pulmonary emboli 2013 History of CVA Peripheral vascular disease Asthma Anemia Elevated TSH with normal free T3 T4/subclinical hypothyroidism Chantelle Agee NP Oct 03, 2018 19:17
--- NOTE | 2018-10-03 19:41 | Cardiology Report ---
APPROVED REPORT EXAM: Two-dimensional and M-mode echocardiogram with Doppler and color Doppler. INDICATION Left ventricular function M-Mode DIMENSIONS IVSd1.2 (0.7-1.1cm)Left Atrium (MM)3.1 (1.6-4.0cm) LVDd4.5 (3.5-5.6cm)Aortic Root2.5 (2.0-3.7cm) PWd1.1 (0.7-1.1cm)Aortic Cusp Exc.2.0 (1.5-2.0cm) LVDs2.6 (2.5-4.0cm) PWs1.9 cm Normal left ventricular chamber size, systolic function and wall motion. Abnormal inter-atrial septal movement Left ventricular ejection fraction estimated to be 55 %. Mild left ventricular hypertrophy. No evidence of pericardial effusion. Mild bi-atrial enlargement. Right ventricular chamber sizes is within normal limits. Focal aortic valve sclerosis with adequate cusp excursion. Thickened mitral valve leaflets with normal excursion. Mild mitral annulus and aortic root calcification. Pulmonic valve not well visualized. Normal tricuspid valve structure. IVC is normal in size without physiological collapse, suggestive of increased RA pressure. Pacemaker wire present in the right side chambers. A color flow and spectral Doppler study was performed and revealed: No aortic regurgitation. Peak aortic valve gradient of 9 mmHg and a mean of 5 mmHg. Aortic valve area 1.4 cm2 calculated by continuity equation. Trace mitral regurgitation. Mitral diastolic velocities suggest mild left ventricular diastolic dysfunction (Grade I). Tricuspid systolic velocities suggests peak right ventricular systolic pressure of 39 mmHg, consistent with mild pulmonary hypertension. No pulmonic regurgitation present.
--- NOTE | 2018-10-03 20:38 | Cardiology Report ---
APPROVED REPORT EKG Measurement Heart [id number] Mainly sequential AV paced rhythm with occasional atrial intrinsic activity
== END 2018-10-02 11:00 | disposition left against medical advice (07) | DRG 292 ==
LOC: 2E 22:51
DX: I11.0 Hypertensive heart disease with heart failure (principal); I24.9 Acute ischemic heart disease, unspecified; I69.354 Hemiplegia and hemiparesis following cerebral infarction affecting left non-dominant side; I50.20 Unspecified systolic (congestive) heart failure; I48.0 Paroxysmal atrial fibrillation; Z95.810 Presence of automatic (implantable) cardiac defibrillator; E78.5 Hyperlipidemia, unspecified; I25.2 Old myocardial infarction; I25.10 Atherosclerotic heart disease of native coronary artery without angina pectoris; Z79.01 Long term (current) use of anticoagulants; R07.9 Chest pain, unspecified; Z86.711 Personal history of pulmonary embolism; I73.9 Peripheral vascular disease, unspecified; J45.909 Unspecified asthma, uncomplicated; D64.9 Anemia, unspecified; E02 Subclinical iodine-deficiency hypothyroidism; Z88.6 Allergy status to analgesic agent; M81.0 Age-related osteoporosis without current pathological fracture; I27.20 Pulmonary hypertension, unspecified
CPT/HCPCS: 36415; 80048; 80061; 83880; 84439; 84443; 84481; 84484; 85025; 85610; 85730; 86140; 93005; 93306; 94664; J2405